=== PATIENT | female | born 1955 | race Caucasian/White ===

== ENCOUNTER → 2023-09-20 | Outpatient (CLI) | payer OTHER ==
[2023-09-20 16:22] LABS: Source, Urine Voided
[2023-09-20 17:10] LABS: Appearance, Urine Clear (Clear); Bilirubin, Urine Neg (Neg); Blood, Urine Neg (Neg); Color, Urine Yellow (P-Yellow); Glucose Qualitative, Urine Neg (Neg); Ketones, Urine Neg (Neg); Leukocyte Esterase, Urine 2+ (Neg); Nitrite, Urine Neg (Neg); Protein, Urine Neg (Neg); Urobilinogen, Urine NORM (Normal); pH, Urine 6.5 (5.0-8.0)
[2023-09-20 17:32] LABS: Red Blood Cells, Urine 0-2 /hpf (0-2)
[2023-09-20 17:33] LABS: Bacteria Mod /hpf; Squamous Epithelial Cells Not Seen /hpf (Few)
== END ==
LOC: LAB SHORT 16:10 → LAB 16:10
PROVIDERS: Nurse Practitioner Family
DX: R39.9 Unspecified symptoms and signs involving the genitourinary system (principal)
CPT/HCPCS: 81001; 87077; 87086; 87186

== ENCOUNTER 2023-10-17 12:24 | Day surgery (SDC) | payer OTHER ==
[~2023-10-17] VITALS: Ht 162.6 cm; Wt 63.3 kg
[~2023-10-17 12:24] MED LIST: Balanced Salt Epinephrine Irrigation Solution 500 mL IR SCH; Lidocaine HCl/Pf 1% 5 ML VIAL XX SCH; Moxifloxacin HCL 0.5 MG/0.1 ML 0.4MLSYR RIGHTEYE SCH; NS 500 ML IV ONE; PHENYLEPHRINE\\TROPICAMIDE\\TETRACAINE OPHTHALMIC DILATING SOLN RIGHTEYE PRN; Povidone-Iodine 450 DROP/30 ML Solution RIGHTEYE SCH
[2023-10-17] MEDS ORDERED: MONT10T PO (13:01)
[2023-10-17] MEDS ORDERED: METOPROLOL SUCC25 MG PO (13:01)
[2023-10-17] MEDS ORDERED: ASTEPRO AL205.5 MCG/ NS (13:02)
--- NOTE | 2023-10-17 13:03 | NUR ---
10/17/23 1303 Jyotsna Damian AT 1258 PLEDGET AT 1256
[2023-10-17] MEDS ORDERED: NS 500 ML IV ONE (13:14)
[2023-10-17] MEDS ORDERED: Midazolam HCl 1MG / ML 2ML Vial ONE (13:30)
[2023-10-17] MEDS ORDERED: FentaNYL Citrate 50 MCG/ML 2 ML Injection ONE (13:30)
[2023-10-17 14:17] VITALS: BP 134/80
== END 2023-10-17 14:35 | disposition home or self-care (01) ==
LOC: ORSCSDS 12:24
PROVIDERS: Student in an Organized Health Care Education/Training Program
PROC: 08RJ3JZ Replacement of Right Lens with Synthetic Substitute, Percutaneous Approach (ICD-10-PCS; principal; 2023-10-17 13:30)
DX: H25.813 Combined forms of age-related cataract, bilateral (principal); I10 Essential (primary) hypertension; Z79.899 Other long term (current) drug therapy
CPT/HCPCS: J2250; J3010; J7040; V2632

== ENCOUNTER 2023-10-23 11:19 | Day surgery (SDC) | payer OTHER ==
[~2023-10-23] VITALS: Ht 162.6 cm; Wt 64.2 kg
[~2023-10-23 11:19] MED LIST changes: +ASTEPRO AL205.5 MCG/ NS; +FentaNYL Citrate 50 MCG/ML 2 ML Injection ONE; +Labetalol HCL 5 MG/ML 4ML Injection (Single Dose) ONE; +METOPROLOL SUCC25 MG PO; +MONT10T PO; +Midazolam HCl 1MG / ML 2ML Vial ONE; +Moxifloxacin HCL 0.5 MG/0.1 ML 0.4MLSYR LEFTEYE SCH; -Moxifloxacin HCL 0.5 MG/0.1 ML 0.4MLSYR RIGHTEYE SCH; +PHENYLEPHRINE\\TROPICAMIDE\\TETRACAINE OPHTHALMIC DILATING SOLN LEFTEYE PRN; -PHENYLEPHRINE\\TROPICAMIDE\\TETRACAINE OPHTHALMIC DILATING SOLN RIGHTEYE PRN; +Povidone-Iodine 450 DROP/30 ML Solution LEFTEYE SCH; -Povidone-Iodine 450 DROP/30 ML Solution RIGHTEYE SCH
--- NOTE | 2023-10-23 11:42 | NUR ---
10/23/23 1142 Jyotsna Damian AT 1140 PLESUMANET AT 1141
[2023-10-23] MEDS ORDERED: NS 500 ML IV ONE (11:49)
[2023-10-23 12:59] VITALS: BP 123/66
== END 2023-10-23 13:17 | disposition home or self-care (01) ==
LOC: ORSCSDS 11:19
PROVIDERS: Student in an Organized Health Care Education/Training Program
PROC: 08RK3JZ Replacement of Left Lens with Synthetic Substitute, Percutaneous Approach (ICD-10-PCS; principal; 2023-10-23 12:30)
DX: H25.812 Combined forms of age-related cataract, left eye (principal); Z96.1 Presence of intraocular lens; I10 Essential (primary) hypertension; Z79.899 Other long term (current) drug therapy
CPT/HCPCS: J2250; J3010; J7040; V2632

== ENCOUNTER → 2024-05-29 | Outpatient (CLI) | payer OTHER ==
[~2024-05-29] MED LIST changes: -Balanced Salt Epinephrine Irrigation Solution 500 mL IR SCH; -FentaNYL Citrate 50 MCG/ML 2 ML Injection ONE; -Labetalol HCL 5 MG/ML 4ML Injection (Single Dose) ONE; -Lidocaine HCl/Pf 1% 5 ML VIAL XX SCH; -Midazolam HCl 1MG / ML 2ML Vial ONE; -Moxifloxacin HCL 0.5 MG/0.1 ML 0.4MLSYR LEFTEYE SCH; -NS 500 ML IV ONE; -PHENYLEPHRINE\\TROPICAMIDE\\TETRACAINE OPHTHALMIC DILATING SOLN LEFTEYE PRN; -Povidone-Iodine 450 DROP/30 ML Solution LEFTEYE SCH
== END ==
LOC: LAB 14:14 → LAB SHORT 14:14
DX: L08.9 Local infection of the skin and subcutaneous tissue, unspecified (principal)
CPT/HCPCS: 87070; 87077; 87147; 87186; 87205